=== PATIENT | female | born 1955 | race Caucasian/White ===

== ENCOUNTER 2023-12-01 08:42 | Day surgery (SDC) | payer OTHER, MEDICARE ==
[2023-11-24 11:23] VITALS: BMI 33.8
[2023-12-01 09:22] VITALS: RESP 18; TEMP 97.4
[2023-12-01 11:03] VITALS: BP 106/65; PULSE 83
== END 2023-12-01 11:00 | disposition home or self-care (01) ==
LOC: FASU-ENDO 08:42
PROVIDERS: ATTEND Internal Medicine Gastroenterology
PROC: 0DBL8ZX Excision of Transverse Colon, Via Natural or Artificial Opening Endoscopic, Diagnostic (ICD-10-PCS; 2023-12-01)
PROC: 0DBK8ZX Excision of Ascending Colon, Via Natural or Artificial Opening Endoscopic, Diagnostic (ICD-10-PCS; principal; 2023-12-01 09:56)
DX: Z12.11 Encounter for screening for malignant neoplasm of colon (principal); D17.5 Benign lipomatous neoplasm of intra-abdominal organs; K64.1 Second degree hemorrhoids
CPT/HCPCS: 82962; 88305-TC